=== PATIENT | female | born 1955 | race Caucasian/White ===

== ENCOUNTER → 2017-01-01 | Outpatient (CLI) | payer BC ==
[~2017-01-01] MED LIST: LORA-326 PO; MULT-934 PO; NIAC50TA15 PO; PSEU30TA PO
[2017-01-03 03:55] LABS: FREE T4 (FREE THYROXINE)-BATCH 1.37 NG/DL (0.78-2.19); T3 FREE - BATCH 3.08 PG/ML (2.77-5.27)
== END ==
LOC: LAB 13:08
PROVIDERS: ATTEND Physician Assistant
DX: E03.9 Hypothyroidism, unspecified (principal)
CPT/HCPCS: 36415; 84439; 84443; 84481

== ENCOUNTER 2017-12-07 06:38 | Inpatient (IN) ==
[2017-12-07] MEDS ORDERED: KETOROLAC 30 MG/ML INJECTION IVP ONE (07:35)
[2017-12-07] MEDS ORDERED: SALINE FLUSH 10ml SYRINGE IVF PRN (07:35)
[2017-12-07] MEDS ORDERED: SALINE FLUSH 10ml SYRINGE ONE (08:17)
[2017-12-07] MEDS ORDERED: IOHEXOL 350mg/ml 75ml INJECTION ONE (08:17)
--- NOTE | 2017-12-07 12:07 | Emergency Department Report ---
General Adult HPI - General Chief complaint: Back Pain/Injury Stated complaint: severe right sided back pain Time Seen by Provider: 12/07/17 07:35 - History of Present Illness HPI narrative: 62-year-old female presents to ED with right upper back pain. This began yesterday, radiating up through under her ribs. She did not sleep well last night because of it and did have 2 episodes of vomiting. Severe nausea this morning as well. She thought she may have had a fever last night. Denies any abdominal injury, no dysuria or hesitancy or urgency. No history of bleeding gastric ulcer. She does have increasing pain with deep breathing. - Related Data Home Medications Medication Instructions Recorded Confirmed Loratadine [Claritin] 10 mg PO PRN PRN #0 11/14/09 12/07/17 Multivitamin [Multivitamins] 1 each PO DAILY #0 11/14/09 12/07/17 5-Hydroxytryptophan (5-Htp) [5-Htp] 100 mg PO HS 11/27/17 12/07/17 Atenolol [Tenormin] 1 tab PO HS 11/27/17 12/07/17 Biotin 2,500 mcg PO DAILY 11/27/17 12/07/17 Cholecalciferol (Vitamin D3) 1 cap PO DAILY 11/27/17 12/07/17 [Vitamin D3] Estradiol 0.06 mg Patch [CLIMARA 1 patch TD 1 WEEK 11/27/17 12/07/17 0.06 mg/24 Patch (Weekly)] Lactobacillus Acidophilus 1 each PO DAILY 11/27/17 12/07/17 [Probiotic] Melatonin 3 mg PO HS 11/27/17 12/07/17 [place]-3/Dha/Epa/Fish Oil [Fish Oil 2 each PO DAILY 11/27/17 12/07/17 1,000 mg Softgel] Prasterone (Dhea)/Calcium Carb 5 mg SL HS 11/27/17 12/07/17 [Dhea Tablet] Progesterone, Micronized 200 mg PO HS 11/27/17 12/07/17 [Progesterone] Ubidecarenone/Vit E Acet [Co Q-10 1 each PO DAILY 11/27/17 12/07/17 100 mg Softgel] Vitamin B Complex [Super B-50 1 each PO DAILY 11/27/17 12/07/17 Complex] Magnesium 30 mg PO DAILY 11/28/17 12/07/17 Vitamin K2 1 cap PO DAILY 11/28/17 12/07/17 Previous Rx's Medication Instructions Recorded Oxycodone *IR* [Roxicodone *Ir*] 5 mg PO Q4H PRN #10 tab 12/11/17 Allergies Allergy/AdvReac Type Severity Reaction Status Date / Time Penicillins Allergy Unknown Rash Verified 12/07/17 06:48 amlodipine Allergy Swelling Verified 12/07/17 06:48 lisinopril AdvReac Cough Verified 12/07/17 06:48 Review of Systems All systems: reviewed and negative except as stated PFSH Patient Stated Medical History Cardiac Arrhythmia Yes: irr. heart beat-sees [facility]-every 2years Hypertension Yes Other Cardiology Yes: HLD Sleep Apnea Yes: HAS LOST APPROX 30-40LBS; DOES NOT WEAR CPAP Diabetes Mellitus Type 1 No Diabetes Mellitus Type 2 No Gastroesophageal Reflux Yes Disease Hiatal Hernia Yes Anemia Yes: before menopause Other Musculoskeletal Yes: PTSD Anesthesia Reactions No Blood Transfusions No Chemotherapy No Malignant Hyperthermia No Other No Depression Yes: mild Post Traumatic Stress Disorder Yes: mild Endometriosis Yes Post Menopausal Yes Now No - Social History Smoking status: Never smoker second hand exposure: No Substance use type: does not use Physical Exam - Limitations Limitations: no limitations - General General appearance: alert, in distress (pain) - Normal Exams: Head:: Normocephalic without trauma Neck:: Full range of motion, without adenopathy, JVD, bruits or thyromegaly Chest/Respirations:: Clear all padilla, with good airflow, and symmetry bilaterally Cardiovascular:: Regular rate and rhythm, without murmur or gallop, Pulses 2+ all extremities, capillary refill, <2 seconds all extremities Abdomen:: Bowel sounds positive, non-distended, no hepatosplenomegaly, masses or bruits noted Neurological:: Patient is alert, and oriented, cranial nerves, motor/sensory/ cerebellar, exams w/o gross deficits, to observation Psychiatric:: Patient exhibits, appropriate attention, emotion and affect - Abdominal Exam Abdominal exam: Present: other (pain deep in her right rib with some mild tenderness immediately behind this on the posterior ribs.) Course Vital Signs Temperature 98.6 F 12/07/17 06:48 Pulse Rate 69 12/07/17 06:48 Respiratory Rate 19 12/07/17 06:48 Blood Pressure 137/73 12/07/17 06:48 Pulse Oximetry 96 12/07/17 06:48 Temperature 96.9 F 12/11/17 07:37 Pulse Rate 73 12/11/17 07:37 Respiratory Rate 16 12/11/17 07:37 Blood Pressure 149/81 H 12/11/17 07:37 Pulse Oximetry 95 12/11/17 07:37 Medical Decision Making - MDM Narrative Medical decision making narrative: IV peripheral line started with 1 L normal saline bolus. Patient given 4 mg Zofran and 30 mg of Toradol IV. CBC CMP obtained and CT angiogram of chest ordered due to pain. CT angiogram was negative except for incidental noting of thickening of gallbladder wall. Abdominal ultrasound then obtained which did show a bladder thickening with significant stone. Spoke with Dr. Jamison and we agreed this was acute cholecystitis with the need for urgent surgical removal. He did agree to take her directly back to the OR. She was given 1 g of Invanz prior to surgery. She was also given 2 mg of morphine prior to leaving ED. - Differential Diagnosis pulmonary embolus, acute hepatitis, gastric ulcer, cholecystitis - Medical Records Medical records reviewed: Yes: I reviewed the patient's medical records. - Lab Data Lab results reviewed: Yes: I reviewed the patient's lab results. Result diagrams: 12/11/17 04:04 12/11/17 04:04 Lab Results 12/07/17 12/07/17 12/07/17 Range/Units 07:46 07:46 07:46 WBC 18.8 H (4.5-11.0) T/MM3 RBC 4.92 (4.00-5.20) M/MM3 Hgb 14.3 (12-16) GM/DL Hct 42.8 (36-46) % MCV 87.0 (80-100) UM3 MCH 29.1 (26-34) UUG MCHC 33.4 (31-37) GM/DL RDW Std Deviation 39.7 (36.9-50.2) FL Plt Count 331 (130-400) T/MM3 MPV 9.2 L (9.4-12.4) UM3 Immature Gran % (Auto) Not performed Neut % (Auto) Not performed Lymph % (Auto) Not performed Simpson % (Auto) Not performed Eos % (Auto) Not performed Baso % (Auto) Not performed Neut # (Auto) Not performed Lymph # (Auto) Not performed Simpson # (Auto) Not performed Eos # (Auto) Not performed Baso # (Auto) Not performed Abs Immat Gran (auto) Not performed Neutrophils % (Manual) 85.0 H (33-66) % Band Neutrophils % 1.0 (0-6) % Lymphocytes % (Manual) 8.0 L (23-45) % Monocytes % (Manual) 6.0 (0-9.0) % Basophils % (Manual) (0-2) % Neutrophils # (Manual) 16.0 H (1.8-7.7) T/MM3 Band Neutrophils # 0.2 T/MM3 Lymphocytes # (Manual) 1.5 (1-4.8) T/MM3 Monocytes # (Manual) 1.1 H (0-0.8) T/MM3 Basophils # (Manual) (0-0.2) T/MM3 RBC Morph Comment Normal D-Dimer 344 H (0-230) NG/ML Turbidity < 20 (0-20) Sodium 140 (134-144) MEQ/L Potassium 4.0 (3.6-5) MEQ/L Chloride 100 (98-107) MEQ/L Carbon Dioxide 27 (22-30) MEQ/L Anion Gap 13 (5-15) MEQ/L BUN 17.0 (7-17) MG/DL Creatinine 0.7 (0.7-1.2) MG/DL GFR Calculation 85 BUN/Creatinine Ratio 24 (6-26) RATIO Glucose 135 H (65-110) MG/DL Calculated Osmolality 273 (261-280) MOSM/KG Calcium 10.5 H (8.4-10.2) MG/DL Total Bilirubin 0.60 (0.20-1.30) MG/DL Icterus Index < 2 (0-7) AST 19 (14-36) U/L ALT 19 (9-52) U/L Alkaline Phosphatase 69 (38-126) U/L Troponin I < 0.012 (0-0.12) ng/ml B-Natriuretic Peptide 643 H (0-175) pg/mL Total Protein 8.2 (6.3-8.2) G/DL Albumin 4.7 (3.5-5.0) G/DL Globulin 3.5 (2.4-3.6) G/DL Albumin/Globulin Ratio 1.3 (1.1-2.2) RATIO Serum Amylase (25-125) U/L Lipase (23-300) U/L Specimen Hemolysis < 15 (0-25) Ur Collection Type Urine Color (YELLOW) Urine Clarity Urine pH (5.0-8.0) Ur Specific [place] (1.015-1.025) Urine Protein (NEGATIVE) Urine Glucose (UA) (NEGATIVE) Urine Ketones (NEGATIVE) Urine Occult Blood (NEGATIVE) Urine Nitrate (NEGATIVE) Urine Bilirubin (NEGATIVE) Urine Urobilinogen (NORMAL) EU/DL Ur Leukocyte Esterase (NEGATIVE) Urinalysis Comment 12/07/17 12/08/17 12/08/17 Range/Units 09:13 03:50 13:17 WBC 17.2 H 20.6 H (4.5-11.0) T/MM3 RBC 3.99 L 3.97 L (4.00-5.20) M/MM3 Hgb 11.5 L D 11.6 L (12-16) GM/DL Hct 35.7 L D 35.6 L (36-46) % MCV 89.5 89.7 (80-100) UM3 MCH 28.8 29.2 (26-34) UUG MCHC 32.2 32.6 (31-37) GM/DL RDW Std Deviation 41.4 41.6 (36.9-50.2) FL Plt Count 260 268 (130-400) T/MM3 MPV 9.6 9.2 L (9.4-12.4) UM3 Immature Gran % (Auto) Not performed Not performed Neut % (Auto) Not performed Not performed Lymph % (Auto) Not performed Not performed Simpson % (Auto) Not performed Not performed Eos % (Auto) Not performed Not performed Baso % (Auto) Not performed Not performed Neut # (Auto) Not performed Not performed Lymph # (Auto) Not performed Not performed Simpson # (Auto) Not performed Not performed Eos # (Auto) Not performed Not performed Baso # (Auto) Not performed Not performed Abs Immat Gran (auto) Not performed Not performed Neutrophils % (Manual) 87.0 H 90.0 H (33-66) % Band Neutrophils % 9.0 H 1.0 (0-6) % Lymphocytes % (Manual) 3.0 L 7.0 L (23-45) % Monocytes % (Manual) 2.0 (0-9.0) % Basophils % (Manual) 1.0 (0-2) % Neutrophils # (Manual) 15.0 H 18.5 H (1.8-7.7) T/MM3 Band Neutrophils # 1.5 0.2 T/MM3 Lymphocytes # (Manual) 0.5 L 1.4 (1-4.8) T/MM3 Monocytes # (Manual) 0.4 (0-0.8) T/MM3 Basophils # (Manual) 0.2 (0-0.2) T/MM3 RBC Morph Comment Normal Normal D-Dimer (0-230) NG/ML Turbidity (0-20) Sodium (134-144) MEQ/L Potassium (3.6-5) MEQ/L Chloride (98-107) MEQ/L Carbon Dioxide (22-30) MEQ/L Anion Gap (5-15) MEQ/L BUN (7-17) MG/DL Creatinine (0.7-1.2) MG/DL GFR Calculation BUN/Creatinine Ratio (6-26) RATIO Glucose (65-110) MG/DL Calculated Osmolality (261-280) MOSM/KG Calcium (8.4-10.2) MG/DL Total Bilirubin (0.20-1.30) MG/DL Icterus Index (0-7) AST (14-36) U/L ALT (9-52) U/L Alkaline Phosphatase (38-126) U/L Troponin I (0-0.12) ng/ml B-Natriuretic Peptide (0-175) pg/mL Total Protein (6.3-8.2) G/DL Albumin (3.5-5.0) G/DL Globulin (2.4-3.6) G/DL Albumin/Globulin Ratio (1.1-2.2) RATIO Serum Amylase (25-125) U/L Lipase (23-300) U/L Specimen Hemolysis (0-25) Ur Collection Type Urine, void-cc/notcc Urine Color Yellow (YELLOW) Urine Clarity Clear Urine pH 6.0 (5.0-8.0) Ur Specific [place] <=1.005 L (1.015-1.025) Urine Protein Negative (NEGATIVE) Urine Glucose (UA) Negative (NEGATIVE) Urine Ketones Negative (NEGATIVE) Urine Occult Blood Negative (NEGATIVE) Urine Nitrate Negative (NEGATIVE) Urine Bilirubin Negative (NEGATIVE) Urine Urobilinogen 0.2 (NORMAL) EU/DL Ur Leukocyte Esterase Negative (NEGATIVE) Urinalysis Comment Microscopic not ind. 12/08/17 12/08/17 Range/Units 14:41 14:41 WBC (4.5-11.0) T/MM3 RBC (4.00-5.20) M/MM3 Hgb (12-16) GM/DL Hct (36-46) % MCV (80-100) UM3 MCH (26-34) UUG MCHC (31-37) GM/DL RDW Std Deviation (36.9-50.2) FL Plt Count (130-400) T/MM3 MPV (9.4-12.4) UM3 Immature Gran % (Auto) Neut % (Auto) Lymph % (Auto) Simpson % (Auto) Eos % (Auto) Baso % (Auto) Neut # (Auto) Lymph # (Auto) Simpson # (Auto) Eos # (Auto) Baso # (Auto) Abs Immat Gran (auto) Neutrophils % (Manual) (33-66) % Band Neutrophils % (0-6) % Lymphocytes % (Manual) (23-45) % Monocytes % (Manual) (0-9.0) % Basophils % (Manual) (0-2) % Neutrophils # (Manual) (1.8-7.7) T/MM3 Band Neutrophils # T/MM3 Lymphocytes # (Manual) (1-4.8) T/MM3 Monocytes # (Manual) (0-0.8) T/MM3 Basophils # (Manual) (0-0.2) T/MM3 RBC Morph Comment D-Dimer (0-230) NG/ML Turbidity < 20 (0-20) Sodium 143 (134-144) MEQ/L Potassium 4.1 (3.6-5) MEQ/L Chloride 106 (98-107) MEQ/L Carbon Dioxide 27 (22-30) MEQ/L Anion Gap 10 (5-15) MEQ/L BUN 11.0 (7-17) MG/DL Creatinine 0.8 (0.7-1.2) MG/DL GFR Calculation 72 BUN/Creatinine Ratio 14 (6-26) RATIO Glucose 149 H (65-110) MG/DL Calculated Osmolality 277 (261-280) MOSM/KG Calcium 8.9 D (8.4-10.2) MG/DL Total Bilirubin 0.40 (0.20-1.30) MG/DL Icterus Index < 2 (0-7) AST 154 H D (14-36) U/L ALT 220 H D (9-52) U/L Alkaline Phosphatase 99 D (38-126) U/L Troponin I (0-0.12) ng/ml B-Natriuretic Peptide (0-175) pg/mL Total Protein 6.5 (6.3-8.2) G/DL Albumin 3.4 L (3.5-5.0) G/DL Globulin 3.1 (2.4-3.6) G/DL Albumin/Globulin Ratio 1.1 (1.1-2.2) RATIO Serum Amylase 94 (25-125) U/L Lipase 539 H (23-300) U/L Specimen Hemolysis < 15 (0-25) Ur Collection Type Urine Color (YELLOW) Urine Clarity Urine pH (5.0-8.0) Ur Specific [place] (1.015-1.025) Urine Protein (NEGATIVE) Urine Glucose (UA) (NEGATIVE) Urine Ketones (NEGATIVE) Urine Occult Blood (NEGATIVE) Urine Nitrate (NEGATIVE) Urine Bilirubin (NEGATIVE) Urine Urobilinogen (NORMAL) EU/DL Ur Leukocyte Esterase (NEGATIVE) Urinalysis Comment - Radiology Data Radiology results reviewed: Yes: I reviewed the patient's radiology results. Disposition Clinical Impression: Acute cholecystitis Disposition: 02 To [facility] Condition: Improved Time of Disposition: 13:16 - Seen By: physician
[2017-12-07] MEDS ORDERED: BUPIVACAINE 0.25% (2.5mg/ml) PF 30ml INJECTION ONE (12:12)
[2017-12-07] MEDS ORDERED: INDOCYANINE GREEN 25mg INJECTION ONE (12:12)
[2017-12-07] MEDS ORDERED: FentaNYL 100 MCG/2 ML INJECTION ONE (12:27)
[2017-12-07] MEDS ORDERED: MIDAZOLAM 2mg/2ml INJECTION ONE (12:27)
[2017-12-07] MEDS ORDERED: ROCURONIUM 50 MG/5 ML INJECTION IVP ONE (12:28)
[2017-12-07] MEDS ORDERED: PROPOFOL 20 ML ONE (12:28)
[2017-12-07] MEDS: LR 1,000 ML IV SCH ×3 (12:33→15:43)
[2017-12-07 12:50] VITALS: BMI 29.3
[2017-12-07] MEDS ORDERED: DEXAMETHASONE 4 MG/ML INJECTION ONE (13:06)
[2017-12-07] MEDS ORDERED: ONDANSETRON 4 MG/2 ML INJECTION ONE (13:06)
[2017-12-07] MEDS ORDERED: KETOROLAC 60 MG/2 ML INJECTION ONE (13:06)
[2017-12-07] MEDS ORDERED: SUGAMMADEX 200mg/2ml INJECTION IVP ONE (13:06)
[2017-12-07] MEDS ORDERED: MORPHINE SULFATE 10 MG/ML VIAL ONE (13:22)
[2017-12-07] MEDS ORDERED: INDOCYANINE GREEN 25mg INJECTION IVP ONE (13:25)
[2017-12-07] MEDS ORDERED: SALINE FLUSH 10ml SYRINGE IV ONE (13:25)
[2017-12-07] MEDS ORDERED: ERTAPENEM 1 G in NS 100 ML IV ONE (13:27)
[2017-12-07] MEDS ORDERED: BUPIVACAINE 0.25% (2.5mg/ml) PF 30ml INJECTION ID ONE (13:33)
--- NOTE | 2017-12-07 14:14 | Anesthesia Preoperative Report ---
Anesthesia Preoperative Record - Date and Time Date: 12/07/17 Preoperative Diagnosis: acute cholecystitis Proposed Procedure: Lap. Edwina NPO Since Date: 12/07/17 NPO Since Time: 01:15 Allergies/Adverse Reactions: Allergies Allergy/AdvReac Type Severity Reaction Status Date / Time Penicillins Allergy Unknown Rash Verified 12/07/17 06:48 amlodipine Allergy Swelling Verified 12/07/17 06:48 lisinopril AdvReac Cough Verified 12/07/17 06:48 - Vital Signs Vital Signs: Temperature 98.6 F 12/07/17 06:48 Pulse Rate 72 12/07/17 11:19 Respiratory Rate 19 12/07/17 11:19 Blood Pressure 148/67 H 12/07/17 11:19 Pulse Oximetry 98 12/07/17 11:19 Height and Weight: Height 5 ft 5 in Weight 80 kg Body Mass Index 29.3 - Medications Inpatient Medications: Current Medications Lactated Ringer's (Lactated Ringers) 1,000 mls @ 50 mls/hr IV .Q20H RAOUL Last Admin: 12/07/17 14:07 Dose: 50 mls/hr Sodium Chloride (Iv Flush) 10 - 80 ml IVF PRN PRN PRN Reason: Flushing Last Admin: 12/07/17 08:03 Dose: 30 ml Home Medications: Home Medications Medication Instructions Recorded Confirmed Type Loratadine [Claritin] 10 mg PO PRN PRN #0 11/14/09 12/07/17 History Multivitamin [Multivitamins] 1 each PO DAILY #0 11/14/09 12/07/17 History 5-Hydroxytryptophan (5-Htp) [5-Htp] 100 mg PO HS 11/27/17 12/07/17 History Atenolol [Tenormin] 1 tab PO HS 11/27/17 12/07/17 History Biotin 2,500 mcg PO DAILY 11/27/17 12/07/17 History Cholecalciferol (Vitamin D3) 1 cap PO DAILY 11/27/17 12/07/17 History [Vitamin D3] Estradiol 0.06 mg Patch [CLIMARA 1 patch TD 1 WEEK 11/27/17 12/07/17 History 0.06 mg/24 Patch (Weekly)] Lactobacillus Acidophilus 1 each PO DAILY 11/27/17 12/07/17 History [Probiotic] Melatonin 3 mg PO HS 11/27/17 12/07/17 History [place]-3/Dha/Epa/Fish Oil [Fish Oil 2 each PO DAILY 11/27/17 12/07/17 History 1,000 mg Softgel] Prasterone (Dhea)/Calcium Carb 5 mg SL HS 11/27/17 12/07/17 History [Dhea Tablet] Progesterone, Micronized 200 mg PO HS 11/27/17 12/07/17 History [Progesterone] Ubidecarenone/Vit E Acet [Co Q-10 1 each PO DAILY 11/27/17 12/07/17 History 100 mg Softgel] Vitamin B Complex [Super B-50 1 each PO DAILY 11/27/17 12/07/17 History Complex] Magnesium 30 mg PO DAILY 11/28/17 12/07/17 History Vitamin K2 1 cap PO DAILY 11/28/17 12/07/17 History Is Patient on Beta [place]?: Yes - Medical History Respiratory: Reports: Sleep Apnea (HAS LOST APPROX 30-40LBS; DOES NOT WEAR CPAP) Cardiovascular: Reports: Arrhythmia (irr. heart beat-sees [facility]-every 2years), Hypertension, Other (HLD) Gastrointestional: Reports: Gastroesophageal Reflux Disease, Hiatal Hernia Neuro/Musculoskeletal: Reports: Depression (mild), Other (PTSD) Renal/Endocrine: DENIES: Diabetes Mellitus Type 1, Diabetes Mellitus Type 2, Renal Failure, Dialysis, Thyroid Disease, Weight Loss, Weight Gain, Other Other History: DENIES: Anesthesia Reactions, Now, Blood Transfusions, Chemotherapy , Cancer, Hemophilia, Malignant Hyperthermia, Sickle Cell Disease, Other - Surgical History GI Surgery/Treatments: Reports: Colonoscopy Surgery/Treatment: DENIES: Dialysis Musculoskeletal Surgery/Tx: Reports: Other (chronic right hip pain-muscular in nature) Reproductive Surgery/Treatment: Reports: Other (left breast needle biospy, endometrial biospy x3) Anesthesia Reactions: None Hx Family Anesthesia Reaction: No History of Motion Sickness: No - Social History Smoking Status: Never smoker Hx Chewing Tobacco Use: No Second Hand Exposure: No Substance Use Type: does not use Alcohol Intake: current Alcohol Intake Frequency: a few times a week - Pertinent Findings Laboratory: CBC and BMP 12/07/17 07:46 12/07/17 07:46 BMP 12/07/17 07:46 Sodium 140 Potassium 4.0 Chloride 100 Carbon Dioxide 27 BUN 17.0 Creatinine 0.7 Glucose 135 H Calcium 10.5 H Cardiac Enzymes 12/07/17 Range/Units 07:46 Troponin I < 0.012 (0-0.12) ng/ml Liver Function 12/07/17 Range/Units 07:46 Total Bilirubin 0.60 (0.20-1.30) MG/DL AST 19 (14-36) U/L ALT 19 (9-52) U/L Alkaline Phosphatase 69 (38-126) U/L Albumin 4.7 (3.5-5.0) G/DL Urine 12/07/17 Range/Units 09:13 Urine Color Yellow (YELLOW) Urine Clarity Clear Urine pH 6.0 (5.0-8.0) Ur Specific [place] <=1.005 L (1.015-1.025) Urine Protein Negative (NEGATIVE) Urine Glucose (UA) Negative (NEGATIVE) EKG: Sinus Rhythm - Physical Exam Respiratory Exam: Present: lungs clear, bilateral breath sounds equal Cardiovascular Exam: Present: regular rate and rhythm - Airway Assessment Mallampati Score: II TMD: 3 Fingerbreadths Neck Extension: good Overall Assessment: no airway concerns - ASA ASA Score: 2 - Plan Anesthesia: General Inhalation Gases - Discussion Discussion: Discussed risks/options/alternatives of anesthesia and questions answered. Patient consents. Nursing pain assessment noted. Present for Discussion: spouse Attestation Statement: Prior to the delivery of any anesthetic medication, I examined the patient, developed the plan, obtained the patient's consent and discussed the risk and benefits of the procedure with the patient/guardian. - Additional Information Seen by Anesthesia: Yes
--- NOTE | 2017-12-07 14:56 | General Surgery Procedure Note ---
Date of Procedure: 12/07/17 Surgeon: Yaquelin Postoperative Diagnosis: Acute cholecystitis and cholelithiasis Procedure: Laparoscopic cholecystectomy Estimated Blood Loss: See Anesthesia Record.
[2017-12-07] MEDS ORDERED: ACETAMINOPHEN 500 MG TABLET PO PRN (15:38)
[2017-12-07] MEDS ORDERED: LORATADINE 10 MG TABLET PO PRN (15:38)
[2017-12-07] MEDS ORDERED: ONDANSETRON 4 MG/2 ML INJECTION IVP PRN (15:38)
[2017-12-07] MEDS ORDERED: MORPHINE SULFATE 10 MG SYRINGE IV PRN (15:38)
[2017-12-07] MEDS ORDERED: PROMETHAZINE 25 MG INJECTION IVP PRN (15:38)
[2017-12-07] MEDS: IBUPROFEN 200 MG TABLET PO PRN (18:51)
[2017-12-07] MEDS: ATENOLOL 25 MG TABLET PO SCH (21:38)
[2017-12-07] MEDS: PROGESTERONE 100 MG CAPSULE PO SCH (21:39)
[2017-12-07] MEDS: Oxycodone *IR* 5 MG TABLET PO PRN (21:41)
--- NOTE | 2017-12-07 22:02 | Ultrasound Report ---
Indication: ruq pain PROCEDURE: US gall bladder: Encounter: Initial Comparison: None Technique: Grayscale and color Doppler sonographic imaging of the right upper quadrant of the abdomen was performed. Findings: Hepatic parenchyma is homogeneous without evidence for focal mass. The gallbladder shows sludge and small nonshadowing gallstones. There is mild wall thickening at 4 mm. No pericholecystic fluid or sonographic Stephenson's sign. Both the intra and extrahepatic biliary system are of normal caliber with the common duct measuring 3 mm in dimension. Visualized portions of the head and body of the pancreas are unremarkable. The right kidney is present without collecting system dilatation. The right kidney measures 12 cm in length. Impression: Cholelithiasis and findings compatible with acute cholecystitis in the appropriate clinical setting. Surgical evaluation is recommended. There is a preliminary report by [facility]. .
[2017-12-08] MEDS: IBUPROFEN 200 MG TABLET PO PRN ×3 (05:00→19:24)
--- NOTE | 2017-12-08 07:21 | CT Scan Report ---
EXAM: CT angio pulm emboli LOCATION OF DICTATION: [place] HISTORY: dyspnea,r sided pain COMPARISON: No prior studies available for comparison. TECHNIQUE: Multiple contiguous axial images were obtained of the chest with contrast utilizing 85 mL of Omnipaque [address] angiogram protocol. Coronal, sagittal, and MIP reformatted images were utilized. Automated Exposure Control and Iterative Reconstruction dose reducing techniques were utilized. FINDINGS: The heart size is normal.There is no pericardial effusion. The visualized portions of the thoracic aorta and major branch vessels of the aortic arch fills with contrast homogenously and are unremarkable. There are no central pulmonary artery filling defects to suggest pulmonary artery embolism. The trachea and mainstem bronchi are patent.There is no consolidation, pleural effusion, or pneumothorax.There are no masses or nodules seen in the lung parenchyma. There is no axillary, hilar, or mediastinal lymphadenopathy. The visualized bones are unremarkable. There is suggested mural thickening about the gallbladder which is mildly distended. IMPRESSION: 1. No evidence for pulmonary embolism. 2. The lungs are clear. No thoracic lymphadenopathy. 3. Mild gallbladder wall thickening suggested. Please see abdominal ultrasound report for further discussion of suspected cholecystitis. .
[2017-12-08] MEDS: LR 1,000 ML IV SCH ×3 (07:40→21:23)
--- NOTE | 2017-12-08 07:40 | History and Physical ---
HISTORY OF PRESENT ILLNESS This patient is 62 years old. This patient developed the onset of some back pain on the evening of 12/06/2017. The patient continued to have the back pain throughout the night. She took a couple of [place] tablets through the night. The patient continued to experience right sided back pain at the subscapular level on 12/07/2017. The patient also had some upper abdominal pain. The right -sided back pain and the upper abdominal pain was severe enough on 12/07/2017 that the patient did come into [facility] emergency room for evaluation of this. The patient arrived at [facility] emergency room on the morning of 12/07/2017. White blood cell count at the time of evaluation at the emergency room was 18,800 with 85% neutrophils. The patient underwent a CT angiogram of the chest. There were no abnormalities at the lungs. There was no pneumonia. There was no pulmonary embolus. The CT angiogram of the chest did incidentally show a distended gallbladder. The patient underwent a gallbladder sonogram at the time of evaluation at the emergency room. The gallbladder sonogram shows a distended gallbladder with multiple gallstones and thickening of the gallbladder wall. Bile ducts are not dilated. It is thought at the time of evaluation at the emergency room that that the patient has acute cholecystitis. PAST MEDICAL HISTORY Previous Operations: 1. Robotic assisted laparoscopic hysterectomy with bilateral salpingo- oophorectomy on 11/28/[address] Pilar Hernandez at [facility] at [place], [place]. Postoperative diagnoses were postmenopausal bleeding and uterine fibroids. PHYSICAL EXAMINATION VITAL SIGNS: Temperature is 98.6 degrees Fahrenheit oral. Pulse is 72. Respiratory rate is 18. Blood pressure is 148/67. Oxygen saturation is 98% on room air. Height is 1.65 meters. Weight is 80.2 kg. BMI is 29.4 kg/m2. HEENT: No abnormalities noted. NECK: No neck masses. CHEST: Lung sounds are clear. BREASTS: Not examined. HEART: Regular rhythm. No murmurs. ABDOMEN: The abdomen is soft and nontender. There are no abdominal masses. The patient does have recent incision scars from her robotic assisted laparoscopic hysterectomy with bilateral salpingo-oophorectomy operation. SKIN: No jaundice. RECTUM: Exam deferred. EXTREMITIES: No abnormalities noted. LABORATORY DATA White blood cell count is 18,800 with 85% neutrophils, 1% bands and 8% lymphocytes. Hemoglobin is 14.3. Hematocrit is 42.8. Electrolytes are normal. Liver function tests are all normal at this time. IMAGING DATA The patient did undergo a gallbladder sonogram at the time of evaluation at the emergency room on 12/07/2017. The gallbladder sonogram shows the gallbladder distended with multiple gallstones and gallbladder wall thickening measuring 4 mm. Bile ducts are not dilated. CURRENT MEDICATIONS 1. Atenolol one tablet p.o. at bedtime daily. 2. Loratadine 10 mg p.o. p.r.n. 3. Multivitamin one p.o. daily. 4. Estradiol patch 0.06 mg applied once each week. 5. Progesterone 200 mg p.o. at bedtime. 6. Fish oil two p.o. daily. 7. Multiple additional vitamins. ALLERGY HISTORY 1. The patient states she is allergic to penicillin which causes a rash. 2. The patient is not allergic to lisinopril but has experienced cough as a side effect of lisinopril. 3. The patient states that amlodipine causes swelling. IMPRESSION 1. Acute cholecystitis and cholelithiasis. 2. Hypertension. PATIENT EDUCATION I did talk with the patient about undergoing laparoscopic cholecystectomy for treatment of the acute cholecystitis. The nature this procedure was explained to the patient. The patient was told that there is a chance that any laparoscopic cholecystectomy operation such as this might need to be converted over to an open laparotomy with cholecystectomy operation. Expected benefits of undergoing laparoscopic cholecystectomy were discussed with the patient. Alternatives were discussed. Potential risks and complications were also discussed including anesthetic risk, bleeding, infection, poor wound healing and injury to intraabdominal structures such as the liver, the common duct, the duodenum and loops of large and small intestine. The patient does wish to proceed. PLAN 1. Laparoscopic cholecystectomy by Dr. Jamison at [facility]. 2. The patient will also be treated with intravenous antibiotics. The patient will be given Invanz preoperatively and postoperatively. NEDA
[2017-12-08] MEDS: ERTAPENEM 1 G in NS 50 ML IV SCH (08:51)
--- NOTE | 2017-12-08 09:12 | Operative Note ---
DATE OF OPERATION: 12/07/2017 PREOPERATIVE DIAGNOSIS Acute cholecystitis and cholelithiasis. POSTOPERATIVE DIAGNOSIS Acute cholecystitis and cholelithiasis. OPERATION Laparoscopic cholecystectomy. SURGEON Guillermo Jamison MD ANESTHESIA General. ASA class 2 FINDINGS The gallbladder appeared to be acutely inflamed. The gallbladder was thickened. The gallbladder and surrounding tissue were edematous. There were adhesions to the outside of the gallbladder. The gallbladder was distended. The gallbladder did appear to contain multiple gallstones. The liver appeared normal. DESCRIPTION OF OPERATION The patient was placed in supine position on the operating table. General anesthesia was satisfactorily induced. The abdomen was prepped and draped in routine sterile fashion. Bupivacaine 0.25% without epinephrine was infiltrated into the skin and underlying tissue at an infraumbilical incision site. A small infraumbilical incision was made. A Veress needle was inserted into the peritoneal cavity through the incision. Pneumoperitoneum was established with carbon dioxide. The Veress needle was removed. A 5 mm port was placed at the infraumbilical incision. A 5 mm laparoscope was inserted through the 5 mm port at the infraumbilical incision. The patient was placed in 30 degrees reverse Trendelenburg position. The right side of the table was tilted up. The skin and underlying structures at the abdominal wall were infiltrated with bupivacaine at an incision site at the right subcostal area at the level of the midclavicular line. An incision was made at this site and a 5 mm port was placed at this incision. The skin and underlying abdominal wall structures were infiltrated with bupivacaine at the right subcostal area at the level of the anterior axillary line. An incision was made at this site and a 5 mm port was placed at this incision. Bupivacaine was infiltrated into the skin and underlying abdominal wall structures at the midline of the abdomen a short distance down from the xiphoid. An incision was made at the epigastric region of the abdomen at this area and a 12 mm port was placed at this incision in the usual manner. An aspirating cannula was introduced through one of the 5 mm right subcostal ports and was used to aspirate fluid from the distended gallbladder to decompress the gallbladder. A grasping forceps was inserted at the right subcostal port at the anterior axillary line and used to grasp the fundus of the gallbladder and elevate the gallbladder and reflect the liver up superiorly towards the right diaphragm. The infundibulum of the gallbladder was grasped with a Pean grasping forceps inserted at the 5 mm port at the right subcostal area at the midclavicular line. A [place] dissector was inserted at the epigastric port and used to dissect out the cystic duct and cystic artery. The entire hepatocystic triangle was dissected free of all tissue except for the cystic duct and cystic artery. A critical view of safety was achieved. The only two structures remaining at the hepatocystic triangle at this time were the cystic duct and the cystic artery. The identity of the cystic duct was then confirmed with immunofluorescence with indocyanine green dye using the Mobui immunofluorescence system. The cystic duct was visualized with immunofluorescence. Titanium hemoclips were applied to the cystic artery at a level adjacent to the gallbladder. The cystic artery was divided between hemoclips. Titanium hemoclips were then applied to the cystic duct at a level adjacent to the gallbladder. The cystic duct was divided between hemoclips. Three titanium hemoclips were left in place on the cystic duct stump. The gallbladder was then dissected out of the gallbladder bed with a curved dissecting hook connected to a monopolar electrosurgery device. The gallbladder was completely dissected out of the gallbladder bed. The gallbladder bed was examined. Irrigation was performed at the gallbladder bed. Hemostasis was achieved at the gallbladder bed by coagulating bleeding points with the monopolar electrosurgery device with curved dissecting hook. Satisfactory hemostasis was achieved at the gallbladder bed. Additional irrigation was performed at the subhepatic space. The gallbladder was then placed in a specimen retrieval pouch. The specimen retrieval pouch containing the gallbladder was brought out through the epigastric incision. The gallbladder was submitted as a specimen for study by the pathologist. The gallbladder bed was then examined further. More irrigation was performed at the gallbladder bed. Hemostasis appeared be satisfactory everywhere at the gallbladder bed. The right subcostal ports were removed. The epigastric port was removed. The laparoscope was removed. The infraumbilical port was removed. Carbon dioxide was removed from the peritoneal cavity by desufflation. The fascial layer of the epigastric incision was closed with a series of simple interrupted stitches using 0-Vicryl suture. Skin margins were then reapproximated at all four incisions with subcuticular stitches using 4-0 Vicryl suture. Benzoin and 1/4-inch wide Steri-Strips were applied to the incisions. Sterile dressings were applied. The patient tolerated the operation well. The patient was transferred to the operating room to the recovery room in satisfactory condition. NEDA
[2017-12-08] MEDS: Oxycodone *IR* 5 MG TABLET PO PRN ×3 (12:22→21:23)
--- NOTE | 2017-12-08 14:57 | Consult Note ---
Consult Information - Data of Consult Consult date: 12/08/17 Requesting Physician: Guillermo Jamison MD Primary Care Provider: Geovanny Ugarte MD Family Provider: Geovanny Ugarte MD - Consult Narrative Reason for consult: leukocytosis, fever History of present illness: Patient is a 62-year-old female who underwent laparoscopic cholecystectomy yesterday by Dr. Jamison. She had an uneventful postoperative course until today at 11:30 when she developed right upper quadrant pain and pain in her right neck. She states she had no appetite, but had no nausea or vomiting. Once she took morphine, her appetite improved and she was able to eat. Her pain is essentially gone with the exception of pain in the right upper quadrant if she takes a deep breath or if she tries to move. She has been passing gas but has not yet had a bowel movement. She had a robotic hysterectomy and BSO on November [address] Hernandez. She reports she was recovering from this nicely. She had a cough at home for about 3 days, but resolved without any treatment other than [id number] cough syrup. She does feel like today she started to cough again. On admission through the ER yesterday morning, her WBC was 18.8. This morning it was 17.2 but increased to 20.6 by this afternoon. Last evening she had a temp of 99.8. Tmax 100.1 this morning 4:25 AM. She has since run 99.2- 99.4. Given her increase in leukocytosis and fever, hospitalist service was consulted by Dr. Jamison. Past Medical History Medical History HTN Sleep apnea - no CPAP HLD GERD depression/PTSD HRT Surgical History: lap dorothy - Dr Jamison 12/07/17. robotic hyst/BSO - 11/28/17 - [facility] Family History: Father - . Prostate cancer Mother-. CHF, dementia, [place], osteoporosis, osteoarthritis Family History Updates: Review - Social History Smoking status: Never smoker Substance use type: does not use Alcohol intake frequency: holidays/special occasions only Housing: house Household members: spouse Current occupational status: retired Does patient use chewing tobacco?: No Social history: PCP-Dr. 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 Parr Review of Systems All systems PM: 10-point ROS was reviewed, no additional remarkable complaints except Review of systems: hurts in the RUQ to take a deep breath, cough, no appetite earlier, but better after pain medication Medications Home Medications Medication Instructions Recorded Confirmed Type Loratadine [Claritin] 10 mg PO PRN PRN #0 11/14/09 12/07/17 History Multivitamin [Multivitamins] 1 each PO DAILY #0 11/14/09 12/07/17 History 5-Hydroxytryptophan (5-Htp) [5-Htp] 100 mg PO HS 11/27/17 12/07/17 History Atenolol [Tenormin] 1 tab PO HS 11/27/17 12/07/17 History Biotin 2,500 mcg PO DAILY 11/27/17 12/07/17 History Cholecalciferol (Vitamin D3) 1 cap PO DAILY 11/27/17 12/07/17 History [Vitamin D3] Estradiol 0.06 mg Patch [CLIMARA 1 patch TD 1 WEEK 11/27/17 12/07/17 History 0.06 mg/24 Patch (Weekly)] Lactobacillus Acidophilus 1 each PO DAILY 11/27/17 12/07/17 History [Probiotic] Melatonin 3 mg PO HS 11/27/17 12/07/17 History [place]-3/Dha/Epa/Fish Oil [Fish Oil 2 each PO DAILY 11/27/17 12/07/17 History 1,000 mg Softgel] Prasterone (Dhea)/Calcium Carb 5 mg SL HS 11/27/17 12/07/17 History [Dhea Tablet] Progesterone, Micronized 200 mg PO HS 11/27/17 12/07/17 History [Progesterone] Ubidecarenone/Vit E Acet [Co Q-10 1 each PO DAILY 11/27/17 12/07/17 History 100 mg Softgel] Vitamin B Complex [Super B-50 1 each PO DAILY 11/27/17 12/07/17 History Complex] Magnesium 30 mg PO DAILY 11/28/17 12/07/17 History Vitamin K2 1 cap PO DAILY 11/28/17 12/07/17 History Allergies Allergy/AdvReac Type Severity Reaction Status Date / Time Penicillins Allergy Unknown Rash Verified 12/07/17 06:48 amlodipine Allergy Swelling Verified 12/07/17 06:48 lisinopril AdvReac Cough Verified 12/07/17 06:48 Exam Vital Signs: Temperature 99.2 F 12/08/17 12:00 Pulse Rate 80 12/08/17 12:00 Respiratory Rate 18 12/08/17 12:00 Blood Pressure 139/72 12/08/17 12:00 Pulse Oximetry 97 12/08/17 12:00 Height/Weight/BMI: Height 1.65 m Weight 82 kg Body Mass Index 29.3 - Constitutional Present: no acute distress, well nourished, well developed - Routine HEENT Exam Head: Present: normocephalic, atraumatic - Routine Neck Exam Present: supple. Absent: lymphadenopathy, thyromegaly - Routine Respiratory Exam Present: decreased breath sounds (b/l bases), CTA bilaterally. Absent: wheezes - Routine Cardiovascular Exam Present: RRR, no murmur - Routine Abdominal Exam Present: soft, normoactive bowel sounds, tenderness (mild RUQ), wound (healing lap wounds from hyst are w/o infection. Surgical incisions from lap dorothy yesterday are covered. ). Absent: distended - Routine Extremities Exam Present: no edema, normal capillary refill - Routine Skin Exam Present: dry, warm - Routine Neurological Exam Present: alert, oriented X3 - Routine Psychiatric Exam Present: normal affect, cooperative Results - Labs CBC & Chem 7: 12/08/17 13:17 12/08/17 14:41 Labs: Laboratory Tests 12/07/17 12/08/17 12/08/17 07:46 03:50 13:17 WBC 18.8 H 17.2 H 20.6 H Laboratory Tests 12/07/17 12/08/17 12/08/17 07:46 03:50 13:17 Band Neutrophils % 1.0 9.0 H 1.0 Laboratory Tests 12/07/17 12/08/17 12/08/17 07:46 03:50 13:17 Neutrophils # (Manual) 16.0 H 15.0 H 18.5 H Microbiology Results: Microbiology 12/07/17 08:54 Midline Blood Culture - Preliminary No Growth After 1 Day 12/07/17 09:02 Midline Blood Culture - Preliminary No Growth After 1 Day Assessment and Plan (1) Fever Current visit: Yes Status: Acute (2) Leukocytosis Current visit: Yes Status: Acute (3) Transaminitis Current visit: Yes Status: Acute Assessment and Plan: Assessment S/P laparoscopic cholecystectomy by Dr. Jamison 12/07/17 S/P robotic hysterectomy/BSO by Dr. Hernandez 11/28/17 Leukocytosis Fever Postop pain in the right upper quadrant and right neck - 12/08/17 Cough HTN Sleep apnea - no CPAP HLD GERD depression/PTSD HRT Plan Check respiratory panel and chest x-ray given recurrence of her cough and development of fever. Currently CMP is pending. Received Ertapenem post-op and this am. Discussed with Dr. Shay. DVT Prophylaxis: SCD's Resuscitation Status: Full Code - Physician Narrative Physician: Gifty Shay MD Narrative: Date: 12/08/17 Time: 1800 I have independently evaluated and examined this patient. I reviewed the chart, the patient's history, and the DIRECTOR OF DIVERSITY AND INCLUSION/PA's documented findings as above. We discussed and formulated the assessment and plan as above with additions as below: Toshia presented to the emergency room yesterday with right back pain, CTA was negative and lung padilla were entirely clear. Gallbladder was incidentally noted to be distended prompting evaluation with gallbladder sonogram demonstrated thickening of the gallbladder wall and multiple stones. Leukocytosis was present and the patient subsequently went to the operating room for laparoscopic cholecystectomy or gallbladder was characterized as inflamed. She had low-grade fever overnight with persistent leukocytosis this morning with white count slightly higher than yesterday. Back pain has resolved but she does have pain in the right upper quadrant and some pain in the right shoulder. Additionally AST/ALT are both elevated today having been previously normal and lipase is modestly elevated. Patient denies respiratory symptoms and has no dysuria. She does not describe preceding viral symptoms. No blood transfusion with recent hysterectomy. NAD, alert, fluent speech Oropharynx is clear Respirations nonlabored, good airflow, breath sounds clear including at the bases bilaterally Regular cardiac rhythm Bowel sounds present, abdomen soft, nontender Skin without rash Persistent leukocytosis, low-grade fever. No indication of acute acute infection at this time. Suspect ongoing leukocytosis is residual from cholecystitis. Development of elevated liver enzymes and amylase may require reimaging of the upper abdomen if lab abnormalities persist although she has only mild discomfort in the right upper quadrant and has tolerated a regular diet through the day. Reassess labs in the morning. CTA of the lungs and today's chest x-ray were both reviewed by myself-CTA as previously described, chest x-ray with left basilar atelectasis. Currently on ertapenem postoperatively-no indication for expanding antibiotics. Findings reviewed with Dr. Jamison. Hospital Course Summary Disclaimer: The visit summary below is not to be considered part of the above Progress Note. Hospital Course: 12/08/17 - Hospitalist consult Patient has developed increasing leukocytosis and fever post-op lap dorothy. Check respiratory panel and chest x-ray given recurrence of her cough and development of fever. Currently CMP is pending. Received Ertapenem post-op and this am. Discussed with Dr. Shay.
--- NOTE | 2017-12-08 15:32 | XRay Report ---
LOCATION OF DICTATION: [facility] EXAM: XR chest 2V HISTORY: fever, cough, leukocystosis, post-op COMPARISON: December 17, 2011 FINDINGS: Heart size is within normal limits. The stone configuration is normal. Mild haziness within the lung bases bilaterally may reflect infiltrates or mild pneumonitis. Recommend follow based on continued symptoms. There are no pleural effusions. There is no pneumothorax. IMPRESSION: Hazy interstitial opacities with the lung bases may reflect atelectasis or pneumonitis. Recommend follow based on continued symptoms. .
[2017-12-08] MEDS: PROGESTERONE 100 MG CAPSULE PO SCH (20:17)
[2017-12-08] MEDS: ATENOLOL 25 MG TABLET PO SCH (20:18)
[2017-12-08] MEDS: GUAIFENESIN/D-METHORPHAN 600mg/30mg TABLET PO SCH (20:18)
[2017-12-09] MEDS: Oxycodone *IR* 5 MG TABLET PO PRN ×6 (05:32→22:31)
--- NOTE | 2017-12-09 07:19 | Progress Note ---
DATE 12/08/2017 POSTOP DAY #1 HISTORY The patient is ambulating. The patient is tolerating a regular diet. The patient is using her incentive spirometry. The patient states that her right- sided abdominal pain is improved now compared to what it was preoperatively. The patient did receive Invanz preoperatively and has continued to receive intravenous Invanz postoperatively. PHYSICAL EXAMINATION VITAL SIGNS: Temperature was 100.1 degrees Fahrenheit oral at 0425 hours today. Pulse is 78. Respiratory rate is 16. Blood pressure is 143/63. Oxygen saturation is 97% on room air. ABDOMEN: The abdominal incisions all look good.. LABORATORY White blood cell count was 17,200 with 9 bands at 0350 hours today. Hemoglobin was 11.5 and hematocrit was 35.7 at 0350 hours. White blood cell count was 20, 600 with 1 band at 1317 hours today. Hemoglobin was 11.6 and hematocrit was 35.6 at 1317 hours today. Serum electrolytes are normal. Total bilirubin is 0.4 today. AST is mildly elevated at 154. ALT is mildly elevated at 220. Alkaline phosphatase is normal at 99. Serum lipase is mildly elevated at 539. Nasal swab for influenza as well as other viruses are all negative. IMAGING DATA Chest x-ray performed today shows some hazy interstitial opacities at the lung bases which might reflect some atelectasis or pneumonitis. IMPRESSION 1. Status post laparoscopic cholecystectomy for treatment of acute cholecystitis and cholelithiasis on 12/07/2017. 2. Worsening postoperative leukocytosis. 3. Postoperative fever. PLAN 1. Continue intravenous Invanz. 2. Consultation with hospitalist service regarding worsening postoperative leukocytosis. 3. Recheck white blood cell count tomorrow. 4. Continue to monitor temperature and other vital signs. 5. Continue incentive spirometry. 6. Continue to advance activity. [facility]
[2017-12-09] MEDS: IBUPROFEN 200 MG TABLET PO PRN ×2 (07:58→13:59)
[2017-12-09] MEDS: ERTAPENEM 1 G in NS 50 ML IV SCH (08:24)
[2017-12-09] MEDS: GUAIFENESIN/D-METHORPHAN 600mg/30mg TABLET PO SCH ×2 (08:26→20:53)
[2017-12-09] MEDS ORDERED: IOHEXOL 300mg/ml 100ml INJECTION ONE (10:30)
[2017-12-09] MEDS ORDERED: SALINE FLUSH 10ml SYRINGE ONE (10:31)
--- NOTE | 2017-12-09 11:05 | CT Scan Report ---
Indication: post op GB-elevated LFT's PROCEDURE: CT abdomen pelvis w con: Encounter: Initial Comparison: Gallbladder ultrasound dated December 07, 2017 Technique: Axial CT images were performed through the abdomen and pelvis after the administration of intravenous contrast. Coronal and sagittal two-dimensional reformats. Automated Exposure Control and Iterative Reconstruction dose reducing techniques were utilized. Contrast: Omnipaque 300 100 mL Findings: Bibasilar atelectasis with trace effusions. The liver appears normal. No significant intrahepatic bile duct dilatation. Postsurgical changes from recent cholecystectomy with fluid in the gallbladder fossa. A couple tiny foci of free air remain. The spleen, pancreas and adrenal glands are within normal limits. The kidneys are normal. No abdominal or pelvic lymphadenopathy. Small amount of free pelvic fluid. No evidence of a bowel obstruction. Subcutaneous gas in the right lower abdomen . Appendix is normal in caliber. Bone windows show no acute findings. Impression: 1. Expected postoperative changes of recent cholecystectomy. No CT evidence to suggest bile duct obstruction. 2. Bibasilar atelectasis and trace effusions. .
[2017-12-09] MEDS: LR 1,000 ML IV SCH (11:08)
--- NOTE | 2017-12-09 12:42 | Progress Note ---
- Date 12/09/17 Subjective: Patient seen lying in bed this am. She reports her abdominal pain is 3/10. She 's had oxycodone and ibuprofen and has requested another dose of oxycodone. She feels "worn out" b/c she hasn't been able to fall back asleep since 530 this am. She has had no vomiting. Not much of an appetite but plans to eat some jello and a banana for breakfast. She's had some cough, but reports Mucinex DM helps with this. Objective Vital signs: Temperature 97.4 F 12/09/17 08:00 Pulse Rate 76 12/09/17 08:00 Respiratory Rate 16 12/09/17 08:00 Blood Pressure 142/67 H 12/09/17 08:00 Pulse Oximetry 95 12/09/17 08:00 Height/Weight/BMI: Weight 83.2 kg - Constitutional Present: no acute distress, well nourished, well developed - Routine HEENT Exam Head: Present: normocephalic, atraumatic - Routine Respiratory Exam Present: CTA bilaterally. Absent: wheezes - Routine Cardiovascular Exam Present: RRR, no murmur - Routine Abdominal Exam Present: soft, tenderness (RUQ), non distended Comments: surgical wounds without sign of infection - Routine Extremities Exam Present: no edema, normal capillary refill - Routine Skin Exam Present: dry, warm - Routine Neurological Exam Present: alert, oriented X3 - Routine Lymphatic Exam Lymphatic: Absent: adenopathy - Routine Psychiatric Exam Present: normal affect, cooperative Results - Labs CBC & Chem 7: 12/09/17 03:55 12/09/17 03:55 Labs: Laboratory Tests 12/08/17 12/09/17 14:41 03:55 AST 154 H D 165 H ALT 220 H D 233 H Laboratory Tests 12/07/17 12/08/17 12/08/17 07:46 03:50 13:17 WBC 18.8 H 17.2 H 20.6 H 12/09/17 03:55 WBC 18.1 H - Imaging and Cardiology CT scan - abdomen Additional comments: Date of Exam: 12/09/17 Indication: post op GB-elevated LFT's PROCEDURE: CT abdomen pelvis w con: Findings: Bibasilar atelectasis with trace effusions. The liver appears normal. No significant intrahepatic bile duct dilatation. Postsurgical changes from recent cholecystectomy with fluid in the gallbladder fossa. A couple tiny foci of free air remain. The spleen, pancreas and adrenal glands are within normal limits. The kidneys are normal. No abdominal or pelvic lymphadenopathy. Small amount of free pelvic fluid. No evidence of a bowel obstruction. Subcutaneous gas in the right lower abdomen . Appendix is normal in caliber. Bone windows show no acute findings. Impression: 1. Expected postoperative changes of recent cholecystectomy. No CT evidence to suggest bile duct obstruction. 2. Bibasilar atelectasis and trace effusions. Assessment and Plan (1) Fever Current visit: Yes Status: Acute (2) Leukocytosis Current visit: Yes Status: Acute (3) Transaminitis Current visit: Yes Status: Acute Assessment and Plan: Assessment S/P laparoscopic cholecystectomy by Dr. Jamison 12/07/17 S/P robotic hysterectomy/BSO by Dr. Hernandez 11/28/17 Leukocytosis - improving Fever - resolved Postop pain in the right upper quadrant and right neck - 12/08/17 Cough HTN Sleep apnea - no CPAP HLD GERD depression/PTSD HRT Plan Respiratory panel and CXR yesterday were neg. CT abd/pelvic today showed no evidence to suggest bile duct obstruction. LFT's slightly up today, lipase stablized. Leukocytosis slightly improved. DC IVF's - pt taking p.o. well. Continue ertapenem for now. Repeat CBC and CMP in am. - Physician Narrative Physician: other (Marcela Contreras MD) Narrative: Date: 12/09/17 Time: 1434 I have independently evaluated and examined this patient. I reviewed the chart, the patient's history, and the TRIMMING CUTTER/PA's documented findings as above. We discussed and formulated the assessment and plan as above with additions as below: Patient reports she is feeling better today. Continues to have some RUQ tenderness. No guarding or rebound, +BS Plan: CT abd/pelvis, abx per surgery but can de-escalate, trend leukocytosis and transaminitis--likely reactive to underlying pathology. Anticipate trending down soon. Hospital Course Summary Disclaimer: The visit summary below is not to be considered part of the above Progress Note. Hospital Course: 12/08/17 - Hospitalist consult Patient has developed increasing leukocytosis and fever post-op lap dorothy. Check respiratory panel and chest x-ray given recurrence of her cough and development of fever. Currently CMP is pending. Received Ertapenem post-op and this am. Discussed with Dr. Shay. 12/09/17 Respiratory panel and CXR yesterday were neg. CT abd/pelvic today showed no evidence to suggest bile duct obstruction. LFT's slightly up today, lipase stabilized. Leukocytosis slightly improved. DC IVF's - pt taking p.o. well. Continue ertapenem for now. Repeat CBC and CMP in am.
--- NOTE | 2017-12-09 14:27 | Progress Note ---
DATE: 12/09/2017 POSTOP DAY #2 HISTORY The patient has the usual postoperative incisional discomfort. She is eating a regular diet and tolerating this well. She has no nausea or vomiting. The patient is ambulating well. She is using incentive spirometry. The patient has been afebrile for the last 24 hours. PHYSICAL EXAMINATION VITAL SIGNS: Temperature is 97.4 degrees Fahrenheit oral. Pulse is 76. Respiratory rate is 16. Blood pressure is 142/67. Oxygen saturation is 95% on room air. ABDOMEN: The abdominal incisions all look good. LABORATORY DATA White blood cell count is 18,100 with 6 bands today. Hemoglobin is 11. Hematocrit is 34. Serum electrolytes are normal. Serum creatinine is 0.7. AST is 165. ALT is 233. Alkaline phosphatase is 130. Total bilirubin is 0.5. Serum lipase is 43 today. IMAGING DATA The patient did have a CT scan of the abdomen and pelvis performed this morning. This shows the expected normal postoperative changes after recent cholecystectomy. There is no evidence to suggest any bile duct obstruction. The bile ducts are not dilated. There are normal postoperative changes with a small amount of fluid in the gallbladder fossa. There is no large subhepatic fluid collection. The CT scan does show some bibasilar atelectasis. IMPRESSION 1. Status post laparoscopic cholecystectomy for treatment of acute cholecystitis and cholelithiasis on 12/07/2017. 2. Persistent postoperative leukocytosis. This is a little bit better than it was yesterday. 3. Resolution of postoperative fever. 4. Mild elevation of AST, ALT and alkaline phosphatase liver function tests. 5. Bibasilar pulmonary atelectasis. PLAN 1. Continue intravenous Invanz. 2. Continue observation of the patient in the hospital. 3. Continue to monitor white blood cell count with differential and liver function tests. 4. Continue incentive spirometry. 5. Continue to advance activity. MTDD
[2017-12-09] MEDS: ATENOLOL 25 MG TABLET PO SCH (20:54)
[2017-12-09] MEDS: PROGESTERONE 100 MG CAPSULE PO SCH (20:54)
[2017-12-10] MEDS: Oxycodone *IR* 5 MG TABLET PO PRN ×4 (02:58→20:57)
[2017-12-10] MEDS: IBUPROFEN 200 MG TABLET PO PRN ×3 (06:54→21:52)
[2017-12-10] MEDS: GUAIFENESIN/D-METHORPHAN 600mg/30mg TABLET PO SCH ×2 (10:43→20:03)
[2017-12-10] MEDS: ERTAPENEM 1 G in NS 50 ML IV SCH (10:43)
--- NOTE | 2017-12-10 11:14 | Progress Note ---
DATE 12/10/2017 POSTOP DAY #3 HISTORY The patient is tolerating a regular diet. She has had a couple of bowel movements since her operation. She is ambulating well. She is using incentive spirometry. The patient is using oral analgesics for pain control. PHYSICAL EXAMINATION VITAL SIGNS: Temperature is 98.6 degrees Fahrenheit oral. Pulse is 65. Respiratory rate is 18. Blood pressure is 140/68. Oxygen saturation is 95% on room air. ABDOMEN: All of the abdominal incisions look good. LABORATORY DATA White blood cell count is 15,200 with 3 bands today. Hemoglobin is 11.2. Hematocrit is 34.1. Total bilirubin is 0.5. AST is 74 which is improved compared to yesterday. ALT is 175 which is improved compared to yesterday. Alkaline phosphatase is 184 which is a little bit higher than yesterday. IMPRESSION 1. Status post laparoscopic cholecystectomy for treatment of acute cholecystitis and cholelithiasis on 12/07/2017. 2. Persistent postoperative leukocytosis which is improving. 3. Postoperative elevation of AST, ALT and alkaline phosphatase liver function tests with some improvement in the AST and ALT liver function tests today. 4. Bibasilar pulmonary atelectasis. PLAN 1. Continue intravenous Invanz. 2. Recheck white blood cell count and liver function tests again tomorrow. 3. Continue observation of the patient in the hospital for a little bit longer. 4. Continue incentive spirometry. 5. Continue to advance activity. MTDD
[2017-12-10 12:12] VITALS: RESP 16
--- NOTE | 2017-12-10 15:51 | Progress Note ---
- Date 12/10/17 Subjective: F/U: S/P laparoscopic cholecystectomy - POD #3. Toshia was seen today while resting in bed. She reports that she is feeling a little better but admits that it is time for her to have another pain pill. She currently rates her pain in her abdomen and upper back at 3/10. She denies any chest pain, shortness of breath, nausea, vomiting, dysuria or diarrhea. She admits to a mild non-productive cough which she states the mucinex is helping with. No fevers or chills. Her appetite is improved today and she is tolerating oral intake well. Bowels are moving well. Objective Vital signs: Temperature 98.6 F 12/10/17 12:00 Pulse Rate 68 12/10/17 12:00 Respiratory Rate 16 12/10/17 12:00 Blood Pressure 150/75 H 12/10/17 12:00 Pulse Oximetry 94 12/10/17 12:00 Height/Weight/BMI: Weight 182 lb 15.739 oz Comments: Patient is resting in bed and moves easily without assistance. - Constitutional Present: no acute distress, well nourished, well developed, obese, cooperative - Routine HEENT Exam Head: Present: normocephalic, atraumatic Eye: Present: PERRL. Absent: conjunctival icterus ENT: Present: mucous membranes moist, oropharynx clear - Routine Respiratory Exam Absent: dyspnea, respiratory distress, rhonchi, stridor, wheezes Comments: crackles noted to bilateral bases; no respiratory distress or conversational dyspnea. - Routine Cardiovascular Exam Present: RRR, S1, S2, murmur (2/6) - Routine Abdominal Exam Present: soft, normoactive bowel sounds, non distended Comments: mild tenderness along surgical sites. - Routine Extremities Exam Present: edema (trace), non tender, full ROM, pulses intact - Routine Back/Spine/Pelvis Exam Back/Spine: Present: full ROM. Absent: vertebral tenderness - Routine Musculoskeletal Exam Musculoskeletal: Present: moving extremities well - Routine Skin Exam Present: dry, warm. Absent: jaundice Comments: afebrile - Routine Neurological Exam Present: alert, oriented X3, moving all extremities, normal speech - Routine Lymphatic Exam Lymphatic: Absent: lymphedema - Routine Psychiatric Exam Present: normal affect, cooperative Results - Labs CBC & Chem 7: 12/10/17 04:40 12/10/17 04:40 Assessment and Plan (1) Fever Current visit: Yes Status: Resolved (2) Leukocytosis Current visit: Yes Status: Acute (3) Transaminitis Current visit: Yes Status: Acute Assessment and Plan: Assessment S/P laparoscopic cholecystectomy by Dr. Jamison 12/07/17 S/P robotic hysterectomy/BSO by Dr. Hernandez 11/28/17 Leukocytosis - improving Fever - resolved Postop pain in the right upper quadrant and right neck - 12/08/17 Cough HTN Sleep apnea - no CPAP HLD GERD depression/PTSD HRT Plan - 12/10/17. Overall, Toshia appears to be doing better and clinically improving - POD #3. Still struggling with some pain and requesting pain medication at time available. Leukocytosis slowly improving and trending down. Anemia stable. BMP unremarkable. Continue antimicrobial treatment with Invanz - (initiated 12/08/17) LFTs trending down with slight increase in alk phosphate. Will continue to monitor with morning labs. Blood cultures remain negative x 3 days. Continue to encourage incentive spirometry for pulmonary toileting and encourage ambulation as tolerated. Anticipate discharge in near future. DVT Prophylaxis: SCD's Resuscitation Status: Full Code - Time spent with patient Time with patient PN: 25 minutes - Physician Narrative Physician: other (Dr. Contreras.) Narrative: Date: 12/10/17 Time: 1630 I have independently evaluated and examined this patient. I reviewed the chart, the patient's history, and the POLICY VALUE CALCULATOR/PA's documented findings as above. We discussed and formulated the assessment and plan as above with additions as below: Patient reports her pain is improved and she is feeling well. However she states that if she doesn't take pain medications, the pain worsens. Abd: mild tenderness on exam, +BS Plan: labs improving. Would suggest de-escalating abx. Repeat labs in AM. Hospital Course Summary Disclaimer: The visit summary below is not to be considered part of the above Progress Note. Hospital Course: 12/08/17 - Hospitalist consult Patient has developed increasing leukocytosis and fever post-op lap dorothy. Check respiratory panel and chest x-ray given recurrence of her cough and development of fever. Currently CMP is pending. Received Ertapenem post-op and this am. Discussed with Dr. Shay. 12/09/17 Respiratory panel and CXR yesterday were neg. CT abd/pelvic today showed no evidence to suggest bile duct obstruction. LFT's slightly up today, lipase stabilized. Leukocytosis slightly improved. DC IVF's - pt taking p.o. well. Continue ertapenem for now. Repeat CBC and CMP in am. Plan - 12/10/17. Overall, Toshia appears to be doing better and clinically improving - POD #3. Still struggling with some pain and requesting pain medication at time available. Leukocytosis slowly improving and trending down. Anemia stable. BMP unremarkable. Continue antimicrobial treatment with Invanz - (initiated 12/08/17) LFTs trending down with slight increase in alk phosphate. Will continue to monitor with morning labs. Blood cultures remain negative x 3 days. Continue to encourage incentive spirometry for pulmonary toileting and encourage ambulation as tolerated. Anticipate discharge in near future.
[2017-12-10] MEDS: PROGESTERONE 100 MG CAPSULE PO SCH (20:03)
[2017-12-10] MEDS: ATENOLOL 25 MG TABLET PO SCH (20:03)
[2017-12-11] MEDS: Oxycodone *IR* 5 MG TABLET PO PRN ×2 (00:14→06:52)
[2017-12-11 07:38] VITALS: BP 149/81; PULSE 73; TEMP 96.9; O2SAT 95
--- NOTE | 2017-12-11 08:31 | Progress Note ---
- Date 12/11/17 Subjective: F/U: S/P laparoscopic cholecystectomy - POD #4. Toshia was seen today while resting in bed with her at the bedside. She reports that she is feeling great today and is excited to report that she was able to go a little longer between dosages of pain medication. She also reports that she is moving more freely without pain. She denies any new complaints or concerns. No chest pain, shortness of breath, nausea, vomiting or dysuria. Her appetite is stable and bowels are moving. She continues to have occasional cough that is not new for her. She anticipates discharge in the near future. Overall, she is making good gains. Objective Vital signs: Temperature 96.9 F 12/11/17 07:37 Pulse Rate 73 12/11/17 07:37 Respiratory Rate 16 12/11/17 07:37 Blood Pressure 149/81 H 12/11/17 07:37 Pulse Oximetry 95 12/11/17 07:37 Height/Weight/BMI: Weight 182 lb 5.156 oz Comments: Sitting up in bed, watching TV with at the bedside. - Constitutional Present: no acute distress, well nourished, well developed, obese, cooperative - Routine HEENT Exam Head: Present: normocephalic, atraumatic Eye: Present: PERRL. Absent: conjunctival icterus ENT: Present: mucous membranes moist, oropharynx clear - Routine Respiratory Exam Present: decreased breath sounds, crackles (bilateral bases). Absent: rales, respiratory distress, rhonchi, stridor, wheezes Comments: No cough or conversational dyspnea on exam. Breathing easily on room air. - Routine Cardiovascular Exam Present: RRR, S1, S2 - Routine Abdominal Exam Present: soft, normoactive bowel sounds, tenderness (mild), non distended. Absent: rebound - Routine Extremities Exam Present: no edema, full ROM, pulses intact - Routine Back/Spine/Pelvis Exam Back/Spine: Present: full ROM. Absent: vertebral tenderness Comments: moves easily without assistance - Routine Musculoskeletal Exam Musculoskeletal: Present: moving extremities well - Routine Skin Exam Present: intact, dry, warm. Absent: jaundice Comments: afebrile - Routine Neurological Exam Present: alert, oriented X3, moving all extremities, hearing grossly intact, normal speech - Routine Lymphatic Exam Lymphatic: Absent: lymphedema - Routine Psychiatric Exam Present: normal affect, cooperative, good insight, good judgment Results - Labs CBC & Chem 7: 12/11/17 04:04 12/11/17 04:04 Assessment and Plan (1) Fever Current visit: Yes Status: Resolved (2) Leukocytosis Current visit: Yes Status: Resolved (3) Transaminitis Current visit: Yes Status: Acute Assessment and Plan: Assessment S/P laparoscopic cholecystectomy by Dr. Jamison 12/07/17 S/P robotic hysterectomy/BSO by Dr. Hernandez 11/28/17 Leukocytosis - resolved. Fever - resolved Postop pain in the right upper quadrant and right neck - 12/08/17 Cough HTN Sleep apnea - no CPAP HLD GERD depression/PTSD HRT Plan - 12/11/17. Toshia reports feeling much better today and appears to feel good - POD #4. Pain control improving and able to extend duration between pain medication dosing. Concern that she is actively watching the clock and recording timing of pain medication to establish when her next dose will be. Continue to monitor closely. Leukocytosis resolved (WBC 11.0). Anemia stable. BMP remains unremarkable. Continue antimicrobial treatment with Invanz - (initiated 12/08/17) LFTs continue to trend down with slight increase in alk phosphate. Will continue to monitor with morning labs. Blood cultures remain negative x 3 days. Continue to encourage incentive spirometry for pulmonary toileting and encourage ambulation as tolerated. Goal is to walk 4x or more today. Given the frequent dosing of ibuprofen for additional pain control, will add Pepcid for GI protection. SCDs for DVT prophylaxis. Anticipate discharge in near future. DVT Prophylaxis: SCD's GI Prophylaxis: Pepcid Resuscitation Status: Full Code - Time spent with patient Time with patient PN: 25 minutes - Physician Narrative Physician: other (Dr. Contreras) Narrative: Date: 12/11/17 Time: 1127 Patient feeling well today. Denies any pain. Abd soft on exam with good bowel sounds. Plan for discharge today. Medically stable with labs improving. Hospital Course Summary Disclaimer: The visit summary below is not to be considered part of the above Progress Note. Hospital Course: 12/08/17 - Hospitalist consult Patient has developed increasing leukocytosis and fever post-op lap dorothy. Check respiratory panel and chest x-ray given recurrence of her cough and development of fever. Currently CMP is pending. Received Ertapenem post-op and this am. Discussed with Dr. Shay. 12/09/17 Respiratory panel and CXR yesterday were neg. CT abd/pelvic today showed no evidence to suggest bile duct obstruction. LFT's slightly up today, lipase stabilized. Leukocytosis slightly improved. DC IVF's - pt taking p.o. well. Continue ertapenem for now. Repeat CBC and CMP in am. Plan - 12/11/17. Toshia reports feeling much better today and appears to feel good - POD #4. Pain control improving and able to extend duration between pain medication dosing. Concern that she is actively watching the clock and recording timing of pain medication to establish when her next dose will be. Continue to monitor closely. Leukocytosis resolved (WBC 11.0). Anemia stable. BMP remains unremarkable. Continue antimicrobial treatment with Invanz - (initiated 12/08/17) LFTs continue to trend down with slight increase in alk phosphate. Will continue to monitor with morning labs. Blood cultures remain negative x 3 days. Continue to encourage incentive spirometry for pulmonary toileting and encourage ambulation as tolerated. Goal is to walk 4x or more today. Given the frequent dosing of ibuprofen for additional pain control, will add Pepcid for GI protection. SCDs for DVT prophylaxis. Anticipate discharge in near future.
[2017-12-11] MEDS: IBUPROFEN 200 MG TABLET PO PRN (08:48)
[2017-12-11] MEDS: GUAIFENESIN/D-METHORPHAN 600mg/30mg TABLET PO SCH (08:48)
[2017-12-11] MEDS: ERTAPENEM 1 G in NS 50 ML IV SCH (08:49)
[2017-12-11] MEDS ORDERED: FAMOTIDINE 20 MG TABLET PO SCH (09:00)
--- NOTE | 2017-12-11 14:08 | Progress Note ---
DATE 12/11/1817 POSTOP DAY #4 HISTORY The patient is tolerating a regular diet. She has good pain control with oral analgesics. She is using incentive spirometry. She is ambulating well. PHYSICAL EXAMINATION VITAL SIGNS: Temperature is 96.9 degrees Fahrenheit oral. Pulse is 73. Respiratory rate is 16. Blood pressure is 149/81. Oxygen saturation is 95% on room air. ABDOMEN: All the abdominal incisions look good. LABORATORY DATA White blood cell count is 11,000 with no bands today. Hemoglobin is 10.7. Hematocrit is 32.8. Total bilirubin is 0.3. AST is 62. ALT is 127. Alkaline phosphatase is 202. IMPRESSION 1. Status post laparoscopic cholecystectomy for treatment of acute cholecystitis and cholelithiasis on 12/07/2017. 2. Persistent postoperative leukocytosis which is now resolved. 3. Postoperative elevation of AST, ALT and alkaline phosphatase liver function tests with continuing improvement in the AST and ALT liver function tests today. 4. Bibasilar pulmonary atelectasis. PLAN 1. Discontinue intravenous Invanz. 2. Dismiss patient from [facility] today. DISCHARGE MEDICATIONS 1. Resume medications which the patient was taking prior to admission to the hospital. 2. I did give the patient a prescription for oxycodone 5 mg one tablet p.o. every 4 hours p.r.n. pain (dispense 10 - no refills). MTDD
--- NOTE | 2017-12-13 17:19 | Discharge Summary ---
DISCHARGE DIAGNOSES 1. Acute cholecystitis with focal epithelial necrosis and erosion. 2. Cholelithiasis. 3. Postoperative fever. 4. Postoperative leukocytosis. 5. Postoperative transient elevation of AST, ALT and alkaline phosphatase liver function tests. 6. Bibasilar pulmonary atelectasis. 7. Hypertension. OPERATION Laparoscopic cholecystectomy on 12/07/2017. CONSULTS [facility] COURSE This patient was admitted to [facility] by Dr. Jamison on 12/07/2017. History and physical examination findings at the time of admission to the hospital can be found in the dictated admission history and physical examination report. The patient was admitted from the emergency room. White blood cell count at the time of admission was 18,800 with 85% neutrophils, 1% bands and 8% lymphocytes. Liver function tests were all normal at the time of admission to the hospital. The patient did undergo a gallbladder sonogram at the time of evaluation at the emergency room prior to admission. The gallbladder sonogram showed the gallbladder distended with multiple gallstones and gallbladder wall thickening measuring 4 mm. Bile ducts were not dilated. The patient was thought at the time of admission to the hospital to have acute cholecystitis and cholelithiasis. The patient was thought to have chronic medical problems including hypertension. Dr. Jamison recommended laparoscopic cholecystectomy. The patient was given Invanz preoperatively on 12/07/2017. The patient did go to the operating room on 12/07/2017. The patient underwent laparoscopic cholecystectomy by Dr. Jamison. Details of operative findings can be found in the dictated operative note in the chart. Postoperative diagnoses were acute cholecystitis and cholelithiasis. Invanz antibiotic treatment was continued postoperatively. Sequential compression devices were being used throughout this time for deep venous thrombosis prophylaxis. Incentive spirometry was started immediately postoperatively. On the first postoperative day, the patient was ambulating. The patient was tolerating a regular diet. The patient was using her incentive spirometry. The patient reported that the right-sided abdominal pain which she had been experiencing preoperatively was improved postoperatively. The patient continued to receive intravenous Invanz. Temperature was 101.1 degrees Fahrenheit oral. Pulse was 78. The abdominal incisions looked good. White blood cell count was 17,200 with 9 bands at 0350 hours. The white blood cell count did increase to 20,600 with 1 band at 1317 hours. Total bilirubin was 0.4. AST was mildly elevated at 154. ALT was mildly elevated at 220. Alkaline phosphatase was normal at 99. Serum lipase was mildly elevated at 539. The patient was noted to have a postoperative fever and postoperative leukocytosis which was worsening throughout the day. The hospitalist service was consulted regarding the worsening postoperative leukocytosis. Dr. Marcela Contreras from the hospitalist service did see the patient in consultation. A nasal swab for influenza as well as other viruses was performed and these were all negative. Intravenous Invanz was continued. Incentive spirometry was continued. On the second postoperative day, the patient was having the usual postoperative incisional discomfort. She was eating a regular diet and tolerating this well. She had no nausea or vomiting. She was ambulating well. She was using incentive spirometry. The patient had now been afebrile for the previous 24 hours. White blood cell count was 18,100 with 6 bands at this time. AST was 165. ALT was 233. Alkaline phosphatase was 130. Total bilirubin was 0.5. Serum amylase was 43. A CT scan of the abdomen and pelvis was performed on the patient on the morning of the second postoperative day. This did show the expected normal postoperative changes after the recent laparoscopic cholecystectomy. There was no evidence to suggest any bile duct obstruction. The bile ducts were not dilated. There were normal postoperative changes with a small amount of fluid in the gallbladder fossa. There was no large subhepatic fluid collection. The CT scan did show some bibasilar pulmonary atelectasis. It was thought that the persistent postoperative leukocytosis was a little bit better than on the previous day. The postoperative fever appeared to be resolved. There was some mild elevation of AST, ALT and alkaline phosphatase liver function tests with all of these liver function tests worse than they had been on the previous day. The presence of the bibasilar pulmonary atelectasis on the CT scan was noted. Incentive spirometry was continued. Intravenous Invanz was continued. Observation of the patient in the hospital was continued. On the third postoperative day, the patient was tolerating a regular diet. She reported that she had experienced a couple of bowel movements since her operation. She was ambulating well. She was using incentive spirometry. She was using oral analgesics for pain control. The patient was afebrile. The abdominal incisions looked good. White blood cell count was 15,200 with 3 bands on the third postoperative day. Total bilirubin was 0.5. AST was 74 which was improved compared to the previous day. ALT was 175 which was improved compared to the previous day. Alkaline phosphatase was 184 which was a little bit higher than it had been on the previous day. The persistent postoperative leukocytosis appeared to be improving. AST and ALT liver function tests were a little bit better but the alkaline phosphatase liver function test was worse. Intravenous Invanz was continued. Incentive spirometry was continued. Activity was advanced. Observation of the patient in the hospital was continued. On the fourth postoperative day, the patient was tolerating a regular diet. She had good pain control with oral analgesics. She was using incentive spirometry. She was ambulating well. The patient was afebrile. The abdominal incisions looked good. White blood cell count was 11,000 with no bands on the fourth postoperative day. Total bilirubin was 0.3. AST was 62. ALT was 127. Alkaline phosphatase was 202. The persistent postoperative leukocytosis now appeared to be resolved. AST and ALT liver function tests were improving. Alkaline phosphatase was a little bit worse. The intravenous Invanz was discontinued at this time. The patient was dismissed from [facility] in stable condition on the fourth postoperative day. A blood culture report was returned on a specimen obtained at the time of evaluation in the emergency room on 12/07/2017. The blood culture showed no growth after five days. A pathology report was returned on the gallbladder submitted at the time of the operation. One pathology report diagnosis was acute mucosal inflammation with focal epithelial necrosis and erosion. There was no dysplasia or neoplasm identified at the gallbladder. Another pathology report diagnosis was cholelithiasis. DISCHARGE MEDICATIONS 1. Atenolol one tablet p.o. at bedtime daily. 2. Loratadine 10 mg p.o. p.r.n. 3. Multivitamin one p.o. daily. 4. Estradiol patch 0.06 mg applied once each week. 5. Progesterone 200 mg p.o. at bedtime. 6. Fish oil two p.o. daily. 7. Multiple additional vitamins which the patient was taking preoperatively. 8. Oxycodone 5 mg one tablet p.o. every four hours p.r.n. pain (dispense 10 - no refills). DISCHARGE DISPOSITION Followup office visit with Dr. Jamison. [facility]
[2017-12-15] MEDS ORDERED: ESTRADIOL PO SCH
== END 2017-12-11 13:17 | disposition home or self-care (01) | DRG 854 ==
LOC: ED 06:38 → SUR 11:50 → SRG 15:32
PROVIDERS: ADMIT Surgery; ATTEND Surgery